=== PATIENT | male | born 1960 | race Caucasian/White ===

== ENCOUNTER 2021-01-26 11:16 | Day surgery (SDC) | payer BC ==
[2021-01-26] VITALS (12 sets, daily range): BP systolic 114–129; BP diastolic 81–93
[~2021-01-26] VITALS: Ht 185.4 cm; Wt 152.2 kg
[~2021-01-26 11:16] MED LIST: ATOR20TA66 PO; DAPA5TAB PO; FENO160T8 PO; GLIP10TA11 PO; LIRA0.6P2 SUBCUT; LOSA25TA96 PO; METF1000 PO
[2021-01-26] MEDS ORDERED: normal saline 1000ml 1,000 ML IV SCH (11:45)
[2021-01-26] MEDS ORDERED: fentaNYL/PF 50MCG/1 ML 2ML syringe IV ONE (11:45)
[2021-01-26] MEDS ORDERED: MIDAZolam 1mg/ml 10ml vial IV ONE (11:45)
[2021-01-26] MEDS ORDERED: PIOG45TA65 PO (11:58)
[2021-01-26] MEDS ORDERED: INSU100I31 (11:58)
[2021-01-26] MEDS ORDERED: METO-384 PO (11:58)
[2021-01-26] MEDS ORDERED: APIX5TAB3 PO (11:58)
[2021-01-26] MEDS ORDERED: EMPA25TA PO (11:58)
[2021-01-26] MEDS ORDERED: FENO200C PO (11:58)
[2021-01-26] MEDS ORDERED: LEVO125T68 (11:58)
[2021-01-26] MEDS ORDERED: COVID-19 VACC, MRNA(PFIZER)/PF--BNT162b2 syringe IMVAC ONE (12:50)
== END 2021-01-26 16:15 | disposition home or self-care (01) ==
LOC: SSTAY O 11:16
PROVIDERS: ATTEND Internal Medicine Interventional Cardiology
DX: I48.91 Unspecified atrial fibrillation (principal); I10 Essential (primary) hypertension; E11.40 Type 2 diabetes mellitus with diabetic neuropathy, unspecified; E78.5 Hyperlipidemia, unspecified; Z79.01 Long term (current) use of anticoagulants; Z23 Encounter for immunization; E66.9 Obesity, unspecified; Z68.44 Body mass index [BMI] 60.0-69.9, adult; Z79.84 Long term (current) use of oral hypoglycemic drugs; Z79.899 Other long term (current) drug therapy
CPT/HCPCS: 0001A; 82948; 91300; 92960; 93005; 94799; J2250; J3010; J7030